=== PATIENT | female | born 1990 | race Caucasian/White ===

== ENCOUNTER 2022-08-01 16:51 | Outpatient (REF) | payer OTHER, SELFPAY ==
[2022-08-01 20:01] LABS: Abs Immature Grans 0.02 10^3/uL (0.0-0.06); Absolute Basophil Count 0.03 10^3/uL (0.0-0.2); Absolute Eosinophil Count 0.04 10^3/uL (0.0-0.7); Absolute Lymphocyte Count 1.77 10^3/uL (1.2-3.4); Absolute Monocyte Count 0.34 10^3/uL (0.1-0.8); Absolute Neutrophil Count 3.74 10^3/uL (1.2-6.7); Basophils % 0.5; Eosinophils % 0.7; HGB 13.3 g/dL (11.2-15.7); Immature Grans % 0.3; Lymphocytes % 29.8; MCH 31.1 pg (27.0-33.0); MCHC 33.3 % (32.0-36.0); MCV 94 fL (80-95); MPV 10.2 fL (8.0-11.0); Monocytes % 5.7; Platelet Count 308 10^3/uL (130-400); RBC 4.28 10^6/uL (3.93-5.22); RDW-SD 41.5 fL; WBC 5.94 10^3/uL (4.4-10.8)
== END 2022-08-01 16:52 | disposition home or self-care (01) ==
LOC: NCHCN 16:51
PROVIDERS: Visit Provider Nurse Practitioner Family
DX: F41.8 Other specified anxiety disorders (principal); L65.9 Nonscarring hair loss, unspecified
CPT/HCPCS: 80053; 83540; 83550; 84443; 85025

== ENCOUNTER 2022-08-27 21:41 | Outpatient (REF) | payer OTHER, SELFPAY ==
[2022-08-27 21:56] LABS: ALT 23 U/L (14-59); AST 21 U/L (15-37); Albumin 4.1 g/dL (3.4-5.0); Alkaline Phosphatase 66 U/L (46-116); Anion Gap 7.1 mmol/L (3-11); BUN 8 mg/dL (7-18); Bilirubin, Total 0.3 mg/dL (0.2-1.0); CO2 29.9 mmol/L (21.0-32.0); CREATININE 0.8 mg/dL (0.55-1.02); Chloride 104 mmol/L (98-107); Estimated GFR 100.96 (mL/min/1.73m2); Glucose 93 mg/dL (74-106); Potassium 3.8 mmol/L (3.5-5.1); Sodium 141 mmol/L (136-145); TSH (W/Ref FT4) 1.85 uIU/mL (0.36-3.74); Total Protein 7.2 g/dL (6.4-8.2)
== END 2022-08-27 21:42 | disposition home or self-care (01) ==
LOC: NCHCN 21:41
PROVIDERS: Visit Provider Nurse Practitioner Family
DX: F41.8 Other specified anxiety disorders (principal); L65.9 Nonscarring hair loss, unspecified
CPT/HCPCS: 80053; 84443